=== PATIENT | female | born 1950 | race Caucasian/White ===

== ENCOUNTER 2022-08-09 13:18 | Outpatient (REF) | payer MEDICARE, SELFPAY | END 2022-08-09 13:19 | disposition home or self-care (01) | LOC: LBN 13:18 | PROVIDERS: Visit Provider Physician Assistant | DX: L98.8 Other specified disorders of the skin and subcutaneous tissue (principal); L02.611 Cutaneous abscess of right foot | CPT/HCPCS: 87077; 87070; 87186; 87205 ==

== ENCOUNTER 2024-10-14 14:05 | Outpatient (CLI) | payer MEDICARE, SELFPAY ==
--- NOTE | 2024-10-14 13:00 | DI.RAD_ITS ---
Exam(s) XR SHOULDER RT COMPLETE 2+V EXAM: XR SHOULDER RT COMPLETE 2+V CLINICAL HISTORY: RIGHT SHOULDER PAIN. TECHNIQUE: 2D digital imaging was performed of the right shoulder. Two images were obtained. Axill lu and Grashey views were obtained. COMPARISON: There are no priors for comparison. FINDINGS: BONES: No acute fracture is present. No bony destructive lesion is seen. JOINTS: There is marked narrowing of the glenohumeral joint with [id number]. Osteophytes are seen at the inferior aspect of the humeral head. The acromioclavicular joint is fairly well maintained. There is downward sloping of the acromion. SOFT TISSUE: Surgical clips are seen in the region of the right axilla. IMPRESSION: Marked arthrosis of the glenohumeral joint. DATA REPOSITORY: RADIATION DOSE DELIVERED:
== END 2024-10-14 14:06 | disposition home or self-care (01) ==
LOC: DIORS 14:05
PROVIDERS: PCP Specialist/Technologist Athletic Trainer; Referring Provider Specialist/Technologist Athletic Trainer; Visit Provider Student in an Organized Health Care Education/Training Program
DX: M25.511 Pain in right shoulder (principal); M19.011 Primary osteoarthritis, right shoulder; M19.012 Primary osteoarthritis, left shoulder
CPT/HCPCS: 99204; 73030

== ENCOUNTER 2024-11-11 02:33 | Outpatient (CLI) | payer MEDICARE, SELFPAY ==
--- NOTE | 2024-11-11 06:00 | DI.CT_ITS ---
Exam(s) CT UPPER EXTREMITY LT WO EXAM: CT UPPER EXTREMITY LT WO CLINICAL HISTORY: SURGICAL PLANNING,arthritis lt glenohumeral joint,m19.012 TECHNIQUE: Imaging Protocol: Axial computed tomography images with coronal and sagittal reformatted images were created and reviewed. CONTRAST MATERIAL: Intravenous: Omnipaque 350 Contrast volume:structured data in ml Contrast route:IV - COMPARISON: DX Shoulder from 05/15/2023 CR XR SHOULDER RT COMPLETE 2+V from 10/14/2024 FINDINGS: Bones: There is no evidence of fracture or dislocation. Bony alignment is satisfactory. No cellulitic or osteomyelitic changes are identified. There are severe degenerative changes of the glenohumeral joint, with a iobi-vl-iyhm appearance. There is a prominent spurring at the inferior humeral head as well as glenoid. Degenerative subchondral cysts are noted at the superior humeral head. The AC joint shows minimal degenerative changes. Fluid and loose body are noted in the subcoracoid bursa. No lytic or sclerotic lesions are identified. Posterior left rib resection. Soft Tissues: Suture material, atelectasis and scarring are noted in the left upper lobe and hilum. IMPRESSION: Severe degenerative changes of the glenohumeral joint. Loose body in the subcoracoid bursa. Postsurgical changes of the left lung. RADIATION DOSE DELIVERED: 146.94mGy.cm Total DLP DATA REPOSITORY: All CT scans at this facility are submitted to the National Radiology Data Registry (NRDR) Dose Index Registry (DIR) with the [employer] ([employer]). RADIATION OPTIMIZATION: All CT scans at this facility use at least one of these dose optimization techniques: automated exposure control; mA and/or kV adjustment per patient size (includes targeted exams where dose is matched to clinical indication); or iterative reconstruction.
== END 2024-11-11 02:53 ==
PROVIDERS: PCP Specialist/Technologist Athletic Trainer; Visit Provider Student in an Organized Health Care Education/Training Program
DX: M19.012 Primary osteoarthritis, left shoulder (principal)
CPT/HCPCS: 73200

== ENCOUNTER → 2024-11-18 10:37 | Outpatient (BNVA) | payer MEDICARE, SELFPAY | PROVIDERS: PCP Specialist/Technologist Athletic Trainer; Referring Provider Specialist/Technologist Athletic Trainer; Visit Provider Student in an Organized Health Care Education/Training Program | DX: M19.012 Primary osteoarthritis, left shoulder (principal) | CPT/HCPCS: 99214 ==

== ENCOUNTER 2024-12-05 05:54 | Day surgery (SDC) | payer MEDICARE, SELFPAY ==
--- NOTE | 2024-12-05 06:09 | W.ANESPRE ---
General Info Date of Service Date Performed: 12/05/24 Height: 5 ft 3 in Weight: 56.245 kg Body Mass Index (BMI): 21.9 Surgical Procedure: Operation Date: 12/05/24 07:40 Proposed Procedure Side Surgeon p Shoulder Reverse Total Arthroplasty, Biceps Tenodesis Left Osmel Gr MD Meds Allergies and Home Medications Allergies Allergy/AdvReac Type Severity Reaction Status Date / Time amoxicillin Allergy Unknown Unknown Verified 12/05/24 06:20 Home Medication ?Medication ?Instructions ?Recorded tamoxifen 20 mg tablet 20 mg PO DAILY 12/03/24 Current Visit Medications: Current Medications Generic Name Dose Route Start Last Admin Trade Name Freq PRN Reason Stop Dose Admin Ringer's Solution 1,000 mls @ 30 mls/hr 12/05/24 06:00 IV 12/05/24 23:59 INFUSION FLORENTINO Cefazolin Sodium/Dextrose 2 gm in 50 mls @ 100 mls/hr 12/05/24 06:00 Ancef Duplex IVPB 12/05/24 23:59 PREOP FLORENTINO Tranexamic Acid/Sodium Chloride 1,000 mg in 100 mls @ 600 mls/hr 12/05/24 06:00 IVPB 12/05/24 23:59 PREOP FLORENTINO IV Miscellaneous Supplies 1 each 12/05/24 06:00 Iv Access IV 12/05/24 23:59 DIRECTED FLORENTINO Sodium Chloride 0 ml 12/05/24 06:00 Normal Saline Flush 10 Ml Syr IV 12/05/24 23:59 PRN PRN Sodium Chloride 0 ml 12/05/24 06:00 Normal Saline 10 Ml Vial IJ 12/05/24 23:59 DIRECTED PRN Sterile Water 0 ml 12/05/24 06:00 Water,Injection,Sterile 10 Ml Vial IJ 12/05/24 23:59 DIRECTED PRN PFSH Active Problems Active Problems: Problem Status Onset Code Thickened endometrium Acute R93.89 Local recurrence of left lung cancer Acute C34.92 Non-small cell cancer of left lung Acute C34.92 Macular degeneration of left eye Acute H35.30 DJD (degenerative joint disease) Chronic M19.90 Breast cancer Chronic C50.919 Ascending aortic aneurysm Acute I71.21 Arthritis of right glenohumeral joint Acute M19.011 Arthritis of left glenohumeral joint Acute M19.012 Surgical History Surgical History H/O lumpectomy Right S/P partial lobectomy of lung Left Tobacco Smoking/Tobacco Use Status: Former Tobacco Use Alcohol Alcohol Intake: never Substance Use Substance use: Never Substance use type: marijuana Vital Signs and Lab Results Vital Signs Most Recent Vital Signs in EMR: Temp Pulse Resp BP Pulse Ox 36.2 C L 66 16 124/80 100 12/05/24 06:21 12/05/24 06:21 12/05/24 06:21 12/05/24 06:21 12/05/24 06:21 Anesthesia Assessment and Plan Anesthesia History Personal History: No History of Anesthesia Complications Family History: No Family History of Anesthesia Complications Exercise Tolerance Exercise Tolerance: Metabolic Equivalents>4 Cardiac & Pulmonary Exam Cardiac Exam: Normal S1/S2 Heart Sounds Pulmonary Exam: Clear Bilateral Breath Sounds Implantable Cardiac Device Does patient have a Pacemaker or an ICD?: No Airway Exam Known Difficult Airway: No Mallampati Class: 4 Mouth Opening: Narrow (< 3cm) Thyromental Distance: Less than 3 cm Neck Range of Motion: Limited ROM Neck Circumference: Normal Teeth Condition: Removable Dentures/Plates Upper, Removable Dentures/Plates Lower and Edentulous ASA Classification ASA Score: ASA 3 Emergency Case?: No NPO Status NPO Status: NPO Clears >2 hours, Solids >8 hours Anesthesia Plan Resuscitation Status: Full Code Anesthesia Technique: General Anesthesia Airway Planned: Endotracheal Tube Monitors Used: Standard Monitors Preoperative Comments:: 74 yo female for total shoulder. Sig PMHx: Lung CA (s/p lobectomy, radiation, chemo), breast CA (tamoxifen. lumpectomy), DJD, ascending Ao aneurysm (4 cm, followed at [facility] [place]. not noted on most recent chest CT), former smoker, occ cannabis (gummies and smoke). CT scan ([facility] [place]): left hemidiaphragm, radiation fibrosis. mild coronary calcification. Discussed with surgeon about nerve block, given her radiation fibrosis, meenu, and lobectomy decision made to not proceed with nerve block.
[2024-12-05 06:13] VITALS: BMI 21.9
[2024-12-05 06:21] VITALS: BP 124/80; PULSE 66; RESP 16; TEMP 36.2; O2SAT 100
[2024-12-05] MEDS: Lactated Ringers 1,000 ML 30 ML IV (06:50)
--- NOTE | 2024-12-05 07:05 | PDOC.DSDIS_ITS ---
Date of service: 12/05/24 Discharge Plan Disposition Patient Disposition: Home Condition: Stable Discharge Details Attending Provider: Osmel Gr Primary Care Provider: Cleve Willams Home Meds and New Rx's Prescriptions: New naproxen 250 mg tablet 250 mg PO BID PRN (Reason: moderate pain and swelling) Qty: 20 0RF Rx Instructions: take with a meal tramadol 50 mg tablet 50 mg PO Q8H PRN (Reason: severe pain) Qty: 9 0RF Continued tamoxifen 20 mg tablet 20 mg PO DAILY Discharge Instructions Additional Instructions: Surgery: Left reverse total shoulder arthroplasty with biceps tenodesis 12/05/24 Activity: Do not lift anything heavier than a coffee. You should keep your arm at your side in a relatively neutral position at all times except for gentle range of motion exercises, physical therapy, and essential activities. You should use the sling whenever you are out of the house. At home it is best to remove the sling and rest the arm on a pillow at your side or support the operative side with your other hand. A physical therapy prescription will be sent electronically to start in about 3 weeks. Standard Reverse TSA Protocol. Prescriptions: Naproxen 250 mg take 1 every 12 hours with a meal as needed for moderate pain Tramadol 50 mg take 1 every 8 hours as needed for severe pain You may use ygsc-gau-fbcukec Tylenol (acetaminophen) as needed for mild pain. These pain medications may be taken all at once or in different combinations as needed. Also, recommend Colace (docusate) as a stool softener as surgery and pain medicine cause constipation. You may try uipw-izy-abfbszf diphenhydramine (Benadryl) 25-50 mg nightly as a sleep aid Dressings: Leave dressing in place until follow-up. Keep clean and dry at all times. No showers please. Follow-up: 10-[address] Gr You may take off the leg compression stockings this evening at home. You may also leave them on a few days longer if you have a history of leg swelling or edema. Please call the office during business hours with any questions or concerns. Let us know right away if you develop any redness, drainage, fevers, chest pain, or trouble breathing. Do not drink alcohol or drive for at least 24 hours after anesthesia. Stand Alone Forms: Anesthesia Discharge Inst., Press Ganey (DSU) Referrals: Osmel Gr MD [ [facility]FF [facility]YSICIAN, Orthopaedic Surgical] - 12/19/24 10:30 am Discharge Orders Discharge Orders: Discharge Order (Routine); Ordered 12/05/24 Ordered By: Jolly Herring DS: Diagnosis Discharge Diagnosis (1) Arthritis of left glenohumeral joint: Status: Acute
--- NOTE | 2024-12-05 07:30 | ROE_ITS ---
Operative Note Operative Note PRE-OP DIAGNOSIS: Left: 1. End-stage glenohumeral arthritis 2. Long head of the biceps tendinopathy PROCEDURE: Left: 1. Reverse total shoulder arthroplasty, CPT # 99569 2. Open biceps tenodesis, CPT # 66796 The registered dental assistant rda was medically required as this procedure involves retraction, protection of neurovascular structures, and manipulation of multiple instruments and implants at the same time, which cannot be done without a skilled registered dental assistant rda. SURGEON: Osmel Gr MECHANICAL DESIGN TECHNICIAN: Jolly Herring ANESTHESIA TYPE: Local By Surgeon, General LMA/ETT and Primary Nerve Block Refer to Anesthesia Record ESTIMATED BLOOD LOSS: 150 COMPLICATIONS: None Patient was transported to: PACU Patient's condition: stable Implants: [employer] shoulder system Small modular baseplate with 30 mm central screw 20, 20, and 15 mm peripheral locking screws 36 mm +4 mm glenosphere Medium standard length stem +0 mm humeral shell and +4 mm liner Indications: See medical record for details Findings: Significant long head biceps tendinopathy, moderately significant partial subscapularis supra/infraspinatus rotator cuff tearing, and significant glenohumeral cartilage loss and posterior erosion/retroversion Procedure Description: In the operating room, general anesthesia was induced. The patient was positioned beachchair on the operating room table. All bony prominences were well-padded. Preoperative antibiotics were administered. The shoulder was prepped and draped in the usual sterile fashion for shoulder arthroplasty. The correct patient, procedure, and side of the procedure were all verified prior to incision. The deltopectoral approach was preinjected with 0.25% bupivacaine containing epinephrine and taken to the anterior shoulder. Care was taken to bluntly dissect the interval between the deltoid and pectoralis major muscles and to identify the cephalic vein within its fat stripe. The vein was preserved and mobilized laterally. Subdeltoid space and conjoined tendon were freed of adhesions. The long head of the biceps tendon was identified just lateral to the lesser tuberosity. The uppermost margin of the pectoralis major tendon was released from the proximal humerus. The long head of the biceps tendon was tenodesed in situ using SutureTape in a gewuln-ki-krqez fashion securing it superior margin the pectoralis major tendon. The biceps tendon was amputated and followed proximally to identify the rotator interval. A subscapularis tenotomy was performed taking care to release the entire tendon from superior to inferior while bringing the arm gradually into external rotation. Care was taken to avoid the axillary nerve by only working on the bone inferiorly and medially. The supraspinatus and infraspinatus were debrided of partial tearing to a stable margin. Appropriate coagulation was achieved especially interiorly. The anatomic neck was cut using an oscillating saw with the humeral head bone brought back table in case there was a need for future bone grafting. Attention was then turned to the glenoid and retractors were placed and a circumferential release performed removing soft tissue about the glenoid rim. Care was taken inferiorly to work on bone only between 5 and 7:00 o'clock and bluntly elevate tissues inferiorly. The glenoid was sized and guidepin inserted accounting for patient version and inclination. The significant retroversion was partially corrected anteriorly and the basement was placed low, but could not also correct the inferior most inclination had to except some more neutral to superior tilt than usual due to size and space constraints and fit on glenoid bone. The guidepin was advanced just through the far cortex ensuring adequate central fixation length. The one step prep glenoid reamer was then used to prepare glenoid according to manufacturer representative specifications. The baseplate was impacted onto the glenoid surface. The central compression screw was placed. The central screw brick paving checker was used to confirm the central screw was fully seated. The locking guide was then used to drill and place appropriately lengthed inferior, anterior, and posterior screws. The hsvz-ojt-mksicsjhs reamer was used to achieve adequate peripheral reaming. The glenosphere was applied with the cardboard inserter and impacted to engage the Wilhelm taper. It was then locked with appropriate countersinking of the setscrew. The glenosphere had good fit, appropriate positioning, and no soft tissue or bony impingement. The proximal humerus was delivered from the wound with adduction and external rotation. The humerus was sized and pin placed. Reaming and blazing were done over the pin. The stem pin punch was used through the blazer to confirm distal path and complete preparation. The final stem was impacted into place. Trialing was started with a +0 mm shell and liner. The shoulder was reduced and taken through range of motion. Trial components were built up to +4 mm liner to achieve good stability and appropriate tension on the preserve rotator cuff, deltoid, and conjoined tendon. Trial shell and liner were removed. The final shell was impacted onto the humeral stem and final liner was clicked into place. The shoulder was reduced and range of motion, stability, and tension confirmed. The shoulder was copiously irrigated with Betadine and normal saline. Vancomycin powder was distributed deeply about the shoulder and through subcutaneous tissues. The deltopectoral interval was approximated with 2-0 Monocryl burying the cephalic vein. Subcutaneous tissue was irrigated then closed using 2-0 Monocryl in a buried interrupted fashion. Skin was closed using 3-0 Monocryl in a buried subcuticular fashion. Skin glue was applied to the incision. A silver impregnated bandage was placed over the incision. The extremity was placed into a shoulder immobilizer. The patient awoke from anesthesia without complication and was taken to the recovery room in stable condition. Date of Procedure: 12/05/24
[2024-12-05] MEDS: ceFAZolin 2 GM/50 ML BAG IVPB (07:47)
[2024-12-05] MEDS: TRANEXAMIC ACID/SOD. CHL. 1,000 MG/100 ML BAG 600 MG IVPB (07:56)
[2024-12-05] MEDS: Bupivacaine 0.25% Pres-Free W/EPI 30 ML VIAL (08:18)
[2024-12-05] MEDS: Vancomycin 1,000 MG VIAL 1000 MG (08:18)
[2024-12-05 10:40] VITALS: TEMP 36
[2024-12-05 10:55] VITALS: TEMP 36.2
[2024-12-05] MEDS: fentaNYL 100 MCG/2 ML VIAL IVP ×2 (10:57→11:06)
--- NOTE | 2024-12-05 11:05 | W.ANESPOSTOP ---
Postoperative Evaluation Date, Time and Location Date Performed: 12/05/24 Time Performed: 11:05 Patient Location: PACU Vital Signs Most Recent Imported Vital Signs: Most Recent Vital Signs Temp Pulse Resp BP Pulse Ox 35.2 C L 66 16 124/80 100 12/05/24 10:55 12/05/24 06:21 12/05/24 06:21 12/05/24 06:21 12/05/24 06:21 Pain Score Most Recent Pain Score: Most Recent Pain Score Pain Level 6 12/05/24 10:55 Assessment Mental Status: Arousable with meaningful communication Airway and Respiratory Function: Patent airway with normal (patient baseline) respiratory exam Cardiovascular Function: Hemodynamically Stable Hydration Status: Adequately Hydrated Nausea & Vomiting: No Nausea or Vomiting Pain: Pain is tolerable per patient Peripheral Nerve Block: Patient did not receive a nerve block
[2024-12-05 11:17] VITALS: BP 128/74; PULSE 64; RESP 16; TEMP 36; O2SAT 98
--- NOTE | 2024-12-05 11:30 | DI.RAD_ITS ---
Exam(s) XR SHOULDER LT COMPLETE 2+V EXAM: XR SHOULDER LT COMPLETE 2+V CLINICAL HISTORY: Post-op. TECHNIQUE: 2D digital imaging was performed. Three views. Portable. COMPARISON: CT CT UPPER EXTREMITY LT WO from 11/11/2024 FINDINGS: A reverse shoulder prosthesis has been placed. The alignment appears satisfactory. There is residual postsurgical air in the soft tissues. DATA REPOSITORY: RADIATION DOSE DELIVERED:
[2024-12-05 11:57] VITALS: BP 129/84; PULSE 67; RESP 16; TEMP 36.3; O2SAT 98
[2024-12-05] MEDS: ceFAZolin 1 GM/50 ML BAG IVPB (11:59)
[2024-12-05] MEDS: oxyCODONE 5 MG TAB PO (12:15)
[2024-12-05] MEDS: Lactobacillus Acidophilus CAP 1 CAP PO (12:24)
[2024-12-05 12:30] VITALS: BP 128/82; PULSE 65; RESP 16; TEMP 36.3; O2SAT 98
== END 2024-12-05 13:14 | disposition home or self-care (01) ==
PROVIDERS: PCP Specialist/Technologist Athletic Trainer; Visit Provider Student in an Organized Health Care Education/Training Program
PROC: (CPT 23472; principal; 2024-12-05 07:30)
DX: M19.012 Primary osteoarthritis, left shoulder (principal); M75.22 Bicipital tendinitis, left shoulder; G89.18 Other acute postprocedural pain
CPT/HCPCS: 23472; 23430; C1713; 73030; J0131; J0665; J0690; J1100; J2371; J2405; J2704; J3010; J3373; J3475

== ENCOUNTER 2024-12-17 10:39 | Outpatient (CLI) | payer MEDICARE, SELFPAY ==
--- NOTE | 2024-12-17 10:30 | DI.RAD_ITS ---
Exam(s) XR SHOULDER LT COMPLETE 2+V EXAM: XR SHOULDER LT COMPLETE 2+V CLINICAL HISTORY: F/U LEFT RTSA. TECHNIQUE: 2D digital imaging was performed. Two images were obtained. Grashey and Y views were obtained. COMPARISON: CR XR SHOULDER LT COMPLETE 2+V from 12/05/2024 FINDINGS: BONES: There are stable post operative changes of a left reverse total shoulder arthroplasty present. No fracture or dislocation. JOINTS: The orthopedic hardware is in good position. No evidence of hardware loosening. SOFT TISSUE: Normal. IMPRESSION: Stable left reverse total shoulder arthroplasty. DATA REPOSITORY: RADIATION DOSE DELIVERED:
== END 2024-12-17 10:40 | disposition home or self-care (01) ==
LOC: DIORS 10:39
PROVIDERS: PCP Specialist/Technologist Athletic Trainer; Referring Provider Specialist/Technologist Athletic Trainer; Visit Provider Student in an Organized Health Care Education/Training Program
DX: Z47.89 Encounter for other orthopedic aftercare (principal); M19.012 Primary osteoarthritis, left shoulder
CPT/HCPCS: 99024; 73030

== ENCOUNTER → 2025-02-18 13:36 | Outpatient (BNVA) | payer MEDICARE, SELFPAY | PROVIDERS: PCP Specialist/Technologist Athletic Trainer; Referring Provider Specialist/Technologist Athletic Trainer; Visit Provider Student in an Organized Health Care Education/Training Program | DX: Z47.1 Aftercare following joint replacement surgery (principal); Z96.612 Presence of left artificial shoulder joint | CPT/HCPCS: 99024 ==